=== PATIENT | male | born 1955 | race Caucasian/White ===

== ENCOUNTER 2022-12-17 04:10 | Day surgery (SDC) | payer OTHER ==
[2022-12-17] VITALS (232 sets, daily range): BP systolic 94–201; BP diastolic 61–111
[~2022-12-17] VITALS: Ht 193 cm; Wt 105.7 kg
[2022-12-17 08:22] LABS: BASO% 0.4 % (0-3); EOS% 1.6 % (0-8); HEMOGLOBIN 13.7 g/dl (14.0-18.0); IMMATURE GRANULOCYTES 0.4 % (0.0-5.0); LYMPH% 24.4 % (15-41); MEAN CELL VOLUME 83.7 fL CALC (80.0-100.0); MEAN CORPUSCULAR HGB 27.3 pG CALC (26.0-32.0); MEAN CORPUSCULAR HGB CONC 32.6 g/dL CAL (32.0-36.0); MONO% 5.7 % (2-13); NEUT# 4.65 thou/uL (1.82-7.42); NEUT% 67.5 % (42-76); RED BLOOD COUNT 5.02 mill/uL (4.70-6.10); RED CELL DISTRI WIDTH 13.7 % (11.5-15.5)
[2022-12-17 08:30] LABS: ALBUMIN 4.1 g/dL (3.2-5.0); ALKALINE PHOSPHATASE 73 u/l (38-126); ANION GAP 11 (6-22 (CALC)); BILIRUBIN, TOTAL 0.4 mg/dL (0.2-1.3); BUN 20 mg/dL (8-23); BUN/CREATININE RATIO 22 (12-20 (CALC)); CARBON DIOXIDE 26 mmol/l (22-30); CHLORIDE 107 mmol/l (95-108); CREATININE 0.9 mg/dL (0.7-1.3); GFR FOR AFR.AMER. > 60 ML/MIN (>=60 (CALC)); GFR OTHER RACES > 60 ML/MIN (>=60 (CALC)); POTASSIUM 4.2 mmol/l (3.5-5.1); SGOT/AST 21 u/l (19-48); SODIUM 139 mmol/l (137-146); TOTAL PROTEIN 7.2 g/dL (6.3-8.2)
[2022-12-17] MEDS ORDERED: DIOVAN160 MG PO (08:58)
[2022-12-17] MEDS ORDERED: LAMICTAL200 M1 PO (08:59)
[2022-12-17] MEDS ORDERED: BISOPROL FUM5 MG PO (08:59)
[2022-12-17] MEDS ORDERED: TRAZODONE100 MG PO (09:00)
[2022-12-17] MEDS ORDERED: NEXIUM40 M1 PO (09:01)
[2022-12-17] MEDS ORDERED: NALTREXONE50 MG PO (15:07)
[2022-12-17] MEDS ORDERED: CLONIDINE0.1 MG PO (15:08)
[2022-12-17] MEDS ORDERED: KLONOPIN2 MG PO (15:09)
[2022-12-18 04:02] VITALS: BP 91/72
[2022-12-18 04:04] VITALS: BP 136/71
[2022-12-18 06:01] LABS: ALBUMIN 3.9 g/dL (3.2-5.0); ALKALINE PHOSPHATASE 81 u/l (38-126); ANION GAP 15 (6-22 (CALC)); BUN 19 mg/dL (8-23); BUN/CREATININE RATIO 21 (12-20 (CALC)); CARBON DIOXIDE 21 mmol/l (22-30); CHLORIDE 103 mmol/l (95-108); CREATININE 0.9 mg/dL (0.7-1.3); GFR FOR AFR.AMER. > 60 ML/MIN (>=60 (CALC)); GFR OTHER RACES > 60 ML/MIN (>=60 (CALC)); POTASSIUM 4.2 mmol/l (3.5-5.1); SGOT/AST 27 u/l (19-48); SODIUM 134 mmol/l (137-146); TOTAL PROTEIN 6.8 g/dL (6.3-8.2)
[2022-12-18 06:03] LABS: BASO% 0.1 % (0-3); HEMATOCRIT 36.4 % (39.0-50.0); HEMOGLOBIN 12.6 g/dl (14.0-18.0); IMMATURE GRANULOCYTES 0.1 % (0.0-5.0); LYMPH% 3.8 % (15-41); MEAN CELL VOLUME 80.5 fL CALC (80.0-100.0); MEAN CORPUSCULAR HGB 27.9 pG CALC (26.0-32.0); MEAN CORPUSCULAR HGB CONC 34.6 g/dL CAL (32.0-36.0); MONO% 5.5 % (2-13); NEUT# 15.65 thou/uL (1.82-7.42); NEUT% 90.5 % (42-76); RED BLOOD COUNT 4.52 mill/uL (4.70-6.10); RED CELL DISTRI WIDTH 13.3 % (11.5-15.5)
[2022-12-18 06:59] VITALS: BP 150/76
== END 2022-12-18 16:00 | disposition home or self-care (01) | DRG 897 ==
LOC: MS2 04:10 → ANR 04:10 → MS2 17:04 → ANR 12-18 16:00
PROVIDERS: ATTEND Anesthesiology
DX: F11.20 Opioid dependence, uncomplicated (principal)
CPT/HCPCS: J2060; J2354; J3475